=== PATIENT | male | born 1960 | race African-American/Black ===

== ENCOUNTER 2020-12-24 01:57 | Emergency (ER) | payer MEDICAID ==
[~2020-12-24] VITALS: Ht 177.8 cm; Wt 90.0 kg
[2020-12-24] MEDS ORDERED: LORAZEPAM 2MG/ML CPJ IV STA (03:01)
[2020-12-24] MEDS ORDERED: SODIUM CHLORIDE 0.9% 1,000 ML IV ONE (03:15)
[2020-12-24 03:21] LABS: BASOPHILS % 0.9 % (0.0-2.0); EOSINOPHILS % 4.6 % (0.0-5.0); HEMATOCRIT. 45.2 % (42.0-52.0); HEMOGLOBIN. 15.8 g/dL (14.0-18.0); LYMPHOCYTES % 25.5 % (20.0-50.0); MEAN CORPUSCULAR HEMOGLOBIN 27.7 pg (28.0-32.0); MEAN CORPUSCULAR VOLUME 79.4 fL (80.0-94.0); MEAN PLATELET VOLUME 7.6 fl (7.4-10.4); MONOCYTES % 9.6 % (2.0-8.0); NEUTROPHILS % 59.4 % (40.0-76.0); PLATELET 210 x1000/uL (130-400); RED BLOOD CELL COUNT 5.69 mill/uL (4.7-6.1); RED CELL DISTRIBUTION WIDTH 13.1 % (11.6-14.6)
[2020-12-24 03:22] LABS: CHLORIDE 108 mEq/L (98-107)
[2020-12-24 03:27] LABS: ETHANOL BLOOD < 10 mg/dL
[2020-12-24 03:39] LABS: CLARITY URINE CLEAR (CLEAR); COLOR URINE YELLOW (YELLOW); KETONES URINE TRACE (NEGATIVE); LEUKOCYTE ESTERASE URINE NEGATIVE (NEGATIVE); NITRITE URINE NEGATIVE (NEGATIVE); OCCULT BLOOD URINE TRACE (NEGATIVE); PROTEIN URINE 3+ (NEGATIVE); SPECIFIC GRAVITY URINE 1.036 (1.005-1.030)
[2020-12-24 04:04] LABS: *AMPHETAMINES SCREEN URINE NEGATIVE (NEGATIVE); *BARBITURATES SCREEN URINE NEGATIVE (NEGATIVE); *BENZODIAZEPINES SCREEN URINE PRESUMTIVE POSITIVE (NEGATIVE)
[2020-12-24 04:05] LABS: *COCAINE SCREEN URINE PRESUMTIVE POSITIVE (NEGATIVE); CANNABINOID URINE SCREEN NEGATIVE (NEGATIVE); METHADONE URINE SCREEN NEGATIVE (NEGATIVE); OPIATES URINE SCREEN NEGATIVE (NEGATIVE); PHENCYCLIDINE URINE SCREEN PRESUMTIVE POSITIVE (NEGATIVE)
[2020-12-24 08:00] VITALS: BP 130/88
== END 2020-12-24 10:16 | disposition home or self-care (01) ==
LOC: ER 01:57 → EDBD 01:57 → ER 10:16
DX: T40.991A Poisoning by other psychodysleptics [hallucinogens], accidental (unintentional), initial encounter (principal); T40.5X1A Poisoning by cocaine, accidental (unintentional), initial encounter; T42.4X1A Poisoning by benzodiazepines, accidental (unintentional), initial encounter; R41.82 Altered mental status, unspecified; R00.0 Tachycardia, unspecified; R45.1 Restlessness and agitation; R56.9 Unspecified convulsions; F16.188 Hallucinogen abuse with other hallucinogen-induced disorder; F14.188 Cocaine abuse with other cocaine-induced disorder; F13.188 Sedative, hypnotic or anxiolytic abuse with other sedative, hypnotic or anxiolytic-induced disorder; Y93.89 Activity, other specified; Y92.89 Other specified places as the place of occurrence of the external cause
CPT/HCPCS: 36415; 70450; 80053; 80305; 80320; 81003; 82962; 85025; 93005; 96361; 96374; 99285; J2060; J7030; G0480